=== PATIENT | male | born 1940 ===

== ENCOUNTER 2019-08-21 11:50 | Emergency (ER) | payer MEDICARE, BC ==
--- NOTE | 2019-08-21 12:10 | EDM.PDOC ---
<Christiana Andrews - Last Filed: 08/21/19 13:51> ED HPI GENERAL MEDICAL PROBLEM - General Chief Complaint: Respiratory Problem Stated Complaint: UNKNOWN Time Seen by Provider: 08/21/19 12:06 Source of Information: Reports: Patient History Limitations: Reports: Altered Mental Status (history impaired due to underlying dementia) - History of Present Illness INITIAL COMMENTS - FREE TEXT/NARRATIVE: Patient presents to the ED by EMS after family called with concerns of the patient's cough, fever, shortness of breath, and overall weakness. The patient suffers from underlying dementia and denies any symptoms at this time. The patient's bender helper, his daughter, is with him at bedside. The daughter states that she has been his primary caregiver only for the past 1 month, as he was previously residing with his other daughter in [place]. The patient apparently has not yet established with a primary care provider in the area. The patient's daughter states that she has noticed Mukund having an increased cough with sputum production for the past 4 days. She also notes that since this morning she also noticed a drastic change in his strength and ability to ambulate safely. She reports a recorded fever of 101.7 occurring this morning. The patient has been using albuterol nebulizer, tylenol, and ibuprofen. He also has an albuterol inhaler but has not used this. The patients daughter did provide a medication list which includes albuterol for his COPD management. The daughter is unaware if he experiences frequent exacerbations due to the recent change in living situation. Onset: Other (3-4 days ago per family) Duration: Getting Worse Location: Reports: Chest Associated Symptoms: Reports: Cough, Fever/Chills, Weakness Treatments PLATE GRINDER: Reports: Acetaminophen, Breathing Treatments (albuterol nebulizer), NSAIDS - Related Data Allergies Allergy/AdvReac Type Severity Reaction Status Date / Time Unable to Assess Allergy Unverified 08/21/19 12:34 Home Meds: Home Meds Albuterol Sulfate 1.25 mg IH PRN 08/21/19 [History] Donepezil [Aricept] 10 mg PO BEDTIME 08/21/19 [History] Fluticasone Propionate [Flonase Allergy Relief] 15.8 ml NS PRN 08/21/19 [History ] Lisinopril [Zestril] 5 mg PO DAILY 08/21/19 [History] Metoprolol Succinate [Toprol XL] 25 mg PO DAILY 08/21/19 [History] ED ROS GENERAL - Review of Systems Review Of Systems: Unable To Obtain (secondary to underlying dementia. Patient denies symptoms.) Reason Not Obtained: underlying dementia ED EXAM, GENERAL - Physical Exam Exam: See Below Exam Limited By: Altered Mental Status General Appearance: Alert, No Apparent Distress Ears: Normal External Exam, Normal Canal, Hearing Grossly Normal, Normal TMs Nose: Normal Inspection, Normal Mucosa Throat/Mouth: Normal Inspection, Normal Lips, Normal Teeth, Normal Oropharynx Head: Atraumatic, Normocephalic Neck: Supple, Non-Tender. No: Lymphadenopathy (L), Lymphadenopathy (R) Respiratory/Chest: No Respiratory Distress, No Accessory Muscle Use, Wheezing Cardiovascular: Normal Peripheral Pulses, Regular Rate, Rhythm, No Murmur GI/Abdominal: Soft, Non-Tender Neurological: Memory Loss Remote Events Psychiatric: Normal Affect, Normal Mood Skin Exam: Warm, Dry, Intact Course - Vital Signs Last Recorded V/S: Last Vital Signs Temp 98.5 F 08/21/19 11:56 Pulse 70 08/21/19 11:56 Resp 16 08/21/19 11:56 BP 163/62 H 08/21/19 11:56 Pulse Ox 96 08/21/19 11:56 - Orders/Labs/Meds Orders: Active Orders 24 hr Category Date Time Status Chest 2V [CR] Urgent Exams 08/21/19 12:04 Ordered CULTURE STREP A CONFIRMATION [RM] Stat Lab 08/21/19 12:04 Results STREP SCRN A RAPID W CULT CONF [RM] Stat Lab 08/21/19 12:04 Results URINALYSIS W/MICROSCOPIC [UA W/MICROSCOPIC] [URIN] Stat Lab 08/21/19 12:04 Ordered Isolation [COMM] Routine Oth 08/21/19 12:05 Active Labs: Laboratory Tests 08/21/19 08/21/19 Range/Units 12:41 12:41 WBC 7.5 (5.0-10.0) 10^3/uL RBC 4.75 (4.6-6.2) 10^6/uL Hgb 14.7 (14.0-18.0) g/dL Hct 41.7 (40.0-54.0) % MCV 87.8 (80-100) fL MCH 30.9 (27.0-34.0) pg MCHC 35.3 H (33.0-35.0) g/dL Plt Count 162 (150-450) 10^3/uL Neut % (Auto) 82.3 H (42.2-75.2) % Lymph % (Auto) 5.2 L (20.5-50.1) % [place] % (Auto) 11.5 H (2-8) % Eos % (Auto) 0.9 L (1.0-3.0) % Baso % (Auto) 0.1 (0.0-1.0) % Sodium 142 (136-145) mmol/L Potassium 3.6 (3.5-5.1) mmol/L Chloride 104 (98-107) mmol/L Carbon Dioxide 30 (21-32) mmol/L Anion Gap 11.6 (7-13) mEq/L BUN 13 (7-18) mg/dL Creatinine 0.92 (0.70-1.30) mg/dL Est Cr Clr Drug Dosing 68.33 mL/min Estimated GFR (MDRD) > 60 BUN/Creatinine Ratio 14.1 (No establ ref range) Glucose 110 H (74-99) mg/dL Calcium 8.1 L (8.5-10.1) mg/dL Total Bilirubin 0.8 (0.2-1.0) mg/dL AST 34 (15-37) U/L ALT 55 (16-63) U/L Alkaline Phosphatase 84 (46-116) U/L Total Protein 7.4 (6.4-8.2) g/dL Albumin 3.8 (3.4-5.0) g/dL Globulin 3.6 Albumin/Globulin Ratio 1.1 - Radiology Interpretation Free Text/Narrative:: Chest XR unremarkable for acute cardiopulmonary findings. Departure - Departure Time of Disposition: 13:52 Disposition: Home, Self-Care 01 Condition: Fair Clinical Impression: Bronchitis, COPD (chronic obstructive pulmonary disease) with acute bronchitis - Discharge Information *PRESCRIPTION DRUG MONITORING PROGRAM REVIEWED*: Not Applicable *COPY OF PRESCRIPTION DRUG MONITORING REPORT IN PATIENT KHRIS: Not Applicable Instructions: Chronic Obstructive Pulmonary Disease Exacerbation, [id number] , How to Use a Nebulizer, Adult Forms: ED Department Discharge Additional Instructions: Rx: Zithromax take as directed. Take full course of antibiotic Prednisone take as directed. Take this medication with food, prior to noon. Continue albuterol nebulizer every 4 hours during the day. Use albuterol inhaler as needed for wheezing, coughing fits. Sepsis Event Note - Evaluation Sepsis Screening Result: No Definite Risk - Focused Exam Vital Signs: Vital Signs Temp Pulse Resp BP Pulse Ox 08/21/19 11:56 98.5 F 70 16 163/62 H 96 Date Exam was Performed: 08/21/19 Time Exam was Performed: 13:51 <Karthik Aragon - Last Filed: 08/21/19 13:57> Course - Re-Assessments/Exams Free Text/Narrative Re-Assessment/Exam: 08/21/19 13:56 I personally performed or re-performed the physical examination and medical decision making. I have verified all student documentation or findings, including history, physical exam and/or medical decision making. Sepsis Event Note - Focused Exam Date Exam was Performed: 08/21/19 Time Exam was Performed: 13:56
[2019-08-21 13:05] LABS: ANION GAP 11.6 mEq/L (7-13); CHLORIDE,CL 104 mmol/L (98-107); SODIUM,NA 142 mmol/L (136-145)
== END 2019-08-21 14:05 | disposition home or self-care (01) ==
LOC: DL.ED 11:50
DX: J44.0 Chronic obstructive pulmonary disease with (acute) lower respiratory infection (principal); J20.9 Acute bronchitis, unspecified; F03.90 Unspecified dementia, unspecified severity, without behavioral disturbance, psychotic disturbance, mood disturbance, and anxiety; Z79.899 Other long term (current) drug therapy
CPT/HCPCS: 36415; 71046; 80053; 85025; 87081; 87430; 87804; 99283; 99285-25

== ENCOUNTER 2021-08-28 15:15 | Emergency (ER) | payer MEDICARE, BC ==
[2021-08-28 15:52] LABS: ANION GAP 13.9 mEq/L (7-13); CHLORIDE,CL 101 mmol/L (98-107); SODIUM,NA 140 mmol/L (136-145)
[2021-08-28] MEDS ORDERED: Sodium Chloride 0.9% 1,000 ML IV ONE (16:12)
[2021-08-28 16:17] LABS: CORONAVIRUS COVID-19 NAA NEGATIVE (NEGATIVE)
== END 2021-08-28 18:13 | disposition home or self-care (01) ==
LOC: DL.ED 15:15
DX: F03.90 Unspecified dementia, unspecified severity, without behavioral disturbance, psychotic disturbance, mood disturbance, and anxiety (principal); J44.9 Chronic obstructive pulmonary disease, unspecified; I10 Essential (primary) hypertension; E78.00 Pure hypercholesterolemia, unspecified; Z79.899 Other long term (current) drug therapy; Z20.822 Contact with and (suspected) exposure to COVID-19
CPT/HCPCS: 0240U; 36415; 71045; 80053; 81001; 83605; 83880; 85025; 87040; 99285; J7030